=== PATIENT | male | born 1960 | race Caucasian/White ===

== ENCOUNTER 2018-09-20 13:00 | Inpatient (IN) ==
--- NOTE | 2018-09-20 13:29 | Diag Imaging Result Doc PS360 ---
EXAM: CT HEAD W/O CONTRAST HISTORY: POSS STROKE TECHNIQUE: CT head without contrast COMPARISON: 07/28/2017 FINDINGS: No parenchymal hemorrhage. No epidural or subdural hematoma. No subarachnoid hemorrhage. There is atrophy with chronic microvascular ischemic changes and old lacunar infarcts. No mass identified on this noncontrasted exam. No hydrocephalus. No sinus opacification. IMPRESSION: 1.No hemorrhage 2.Atrophy of chronic ischemic changes and old lacunar infarcts This exam was performed using automated exposure control, adjustment of mA or kV according to patient size, and/or use of iterative reconstruction technique. Electronically signed by Rogelio Whitmore 09/20/2018 1:27 PM
[2018-09-20 14:06] LABS: BASO# 0.04 X1000 (0.0-0.2); BASO% 0.5 % (0.0-0.8); EOS# 0.07 X1000 (0.0-0.7); EOS% 0.8 % (0.0-10.0); HEMATOCRIT 44.1 % (42.0-52.0); HEMOGLOBIN 15.3 g/dL (14.0-18.0); LYMPH# 1.81 X1000 (1.2-3.4); LYMPH% 21.1 % (20.5-51.1); MCH 31.7 PG (27-31); MCHC 34.7 g/dL (33-37); MCV 91.3 FL (81-99); MONO# 0.64 X1000 (0.11-0.59); MONO% 7.5 % (1.7-9.3); MPV 12.1 FL (7.4-10.4); NEUT# 6.03 X1000 (1.4-6.5); NEUT% 70.1 % (42.2-75.2); PLT 140 X1000 (130-400); RBC 4.83 XMIL (4.7-6.1); RDW 14.7 % (11.5-14.5); WBC 8.59 X1000 (4.8-10.8)
[2018-09-20 14:16] LABS: INR 1.09; PTT 32.1 Seconds (22.3-41.8)
[2018-09-20] MEDS ORDERED: NS 1,000 ML IV ONE (14:18)
--- NOTE | 2018-09-20 14:21 | Diag Imaging Result Doc PS360 ---
EXAM: CHEST-PORTABLE HISTORY: SYNCOPE TECHNIQUE: Portable chest single view COMPARISON: 08/29/2018 FINDINGS: The lungs are well expanded. The heart is not enlarged. There are sternal wires and surgical clips. The vessels are not distended. There are no infiltrates. No effusion identified. Old right rib fracture. IMPRESSION: Negative exam. Electronically signed by Rogelio Whitmore 09/20/2018 2:19 PM
[2018-09-20 14:23] LABS: ALB/GLOB RATIO 1.9; ALBUMIN 4.7 g/dL (3.5-5.0); CALCIUM 9.5 mg/dL (8.8-10.2); CREATININE 1.6 mg/dL (0.7-1.2); POTASSIUM 4.2 mmol/L (3.5-5.1); TOTAL BILIRUBIN 1.27 mg/dL (0.20-1.00); TOTAL PROTEIN 7.2 g/dL (6.3-8.3)
--- NOTE | 2018-09-20 14:54 | EKG Report ---
Test Performed on : 09/20/2018 2:12:42 PM Test Reason : STROKE LIKE SYMPTOMS Blood Pressure : / mmHG Vent. Rate : 087 BPM Atrial Rate : 087 BPM P-R Int : 152 ms QRS Dur : 090 ms QT Int : 350 ms P-R-T Axes : -08 -45 107 degrees QTc Int : 421 ms Normal sinus rhythm. Left axis deviation Septal infarct (cited on or before 26-MAY-2011) Possible Lateral infarct (cited on or before 26-MAY-2011) Abnormal ECG When compared with ECG of 29-AUG-2018 20:45, (Unconfirmed) Vent. rate has increased BY 33 BPM Non-specific change in ST segment in Inferior leads T wave inversion no longer evident in Inferior leads Nonspecific T wave abnormality, worse in Anterior leads Unconfirmed Result
--- NOTE | 2018-09-20 16:30 | PROVIDER DOCUMENTATION ---
This chart was entered by Jessica Andersen Scribe, acting as scribe for Jonna Pina MD. HPI-General Adult - General Chief Complaint: Syncope Stated Complaint: POSS STROKE Time Seen by Provider: 09/20/18 14:07 Source: patient Allergies/Adverse Reactions: Patient Allergies Allergy/AdvReac Type Severity Reaction Status Date / Time No Known Allergies Allergy Verified 08/29/18 19:05 Home Medications: Home Medication List Medication Instructions Recorded Confirmed Last Taken Type Allopurinol [Zyloprim] 1 tab PO DAILY 08/29/18 09/20/18 Unknown History Alprazolam [Alprazolam ER] 1 tab PO DAILY 08/29/18 09/20/18 Unknown History Aspirin/Calcium Carbonate/Mag 1 tab PO DAILY 08/29/18 09/20/18 Unknown History [Aspirin Buffered 325 mg Tab] Benztropine Mesylate 1 tab PO DAILY 08/29/18 09/20/18 Unknown History Colchicine 1 tab PO DAILY PRN 08/29/18 09/20/18 Unknown History Furosemide [Lasix] 1 tab PO DAILY 08/29/18 09/20/18 Unknown History Insulin Glargine,Hum.rec.anlog 25 unit SQ QHS 08/29/18 09/20/18 Unknown History [Lantus Solostar] Insulin Regular, Human [Novolin R] See Protocol 08/29/18 Unknown History Krill/Om-3/Dha/Epa/Phospho/Ast 500 mg PO DAILY 08/29/18 09/20/18 Unknown History [Krill Oil 500 mg Softgel] Melatonin 3 mg PO QHS #10 tab 08/29/18 09/20/18 Unknown Rx Melatonin 5 mg PO DAILY PRN 08/29/18 09/20/18 Unknown History Nebivolol HCl [Bystolic] 1 tab PO DAILY 08/29/18 09/20/18 Unknown History Ramipril 1 tab PO BID 08/29/18 09/20/18 Unknown History Rosuvastatin Calcium [Crestor] 40 mg PO DAILY 08/29/18 09/20/18 Unknown History Vortioxetine Hydrobromide 1 tab PO DAILY 08/29/18 09/20/18 Unknown History [Trintellix] - History of Present Illness -Gen Adult Nature of Presenting Problems: Patient is a 58 year old male who presents to the ED via EMS after having a fall. Patient states he was dizzy and lost his balance causing him to fall. Denies LOC. Report history of CVA. Patient denies pain. Location of Pain/Injury: reports: none Pain Radiation: reports: no radiation Quality of Pain: reports: none Severity: reports: mild Onset/Duration: reports: just prior to arrival Timing: reports: gone now Associated Symptoms: reports: dizziness Similar Symptoms Previously?: No Recently seen or treated by another doctor?: No Review of Systems - Adult - REVIEW OF SYSTEMS - ADULT Constitutional: reports: no symptoms reported. denies: chills, fever, fatique Eyes: reports: no symptoms reported Ears, Nose, Mouth & Throat: reports: no symptoms reported Cardiovascular: reports: no symptoms reported. denies: chest pain, irregular heart rate, palpitations Respiratory: reports: no symptoms reported. denies: cough, shortness of breath, wheezing Gastrointestinal: reports: no symptoms reported Genitourinary: reports: no symptoms reported Musculoskeletal: reports: no symptoms reported Integumentary: reports: no symptoms reported Neurological: reports: no symptoms reported. denies: dizziness/vertigo, headache/migraines, syncope Psychiatric: reports: no symptoms reported Endocrine: reports: no symptoms reported Hematologic/Lymphatic: reports: no symptoms reported Allergic/Immunologic: reports: no symptoms reported All Other Systems: Reviewed and Negative Past History - Adult - PAST MEDICAL HISTORY-ADULT Review of Records: reports: Old Records Reviewed, Nursing Assessment Review, Medications Reviewed, Social history reviewed & non-contributory. Major Childhood Illnesses: reports: denies history Cardiovascular: reports: HTN, hyperlipidemia Respiratory: reports: denies history Gastrointestinal: reports: GERD Obstetrical/Gynecological: reports: denies history Genitourinary: reports: kidney disease Musculoskeletal: reports: denies history Neurological: reports: CVA, TIA Endocrine/Immune: reports: Diabetes Other Conditions: reports: denies history - PRIOR SURGERIES/PROCEDURES Surgical/Procedure History: reports: reviewed, not pertinent, CABG, cholecystectomy - IMMUNIZATION STATUS Childhood Immunizations: See Nurse Assessment Flu Vaccine: See Nurse Assessment - FAMILY HISTORY Family History: reviewed, not pertinent - SOCIAL HISTORY Smoking: cigarettes (former) Substance Use: denies Living Situation: family Physical Exam-General - PHYSICAL EXAM-ADULT Initial Vital Signs Reviewed: Yes - CONSTITUTIONAL General Appearance: alert, no apparent distress. negative: lethargic, slow to respond - HEAD, EARS, NOSE, MOUTH & THROAT HENMT: normocephalic/atraumatic, other (dry mucous membranes). negative: angioedema, hearing deficit - RESPIRATORY Respiratory: chest non-tender, lungs clear, normal breath sounds. negative: crackles, rales, wheezing - CARDIOVASCULAR Cardiovascular: normal peripheral pulses, regular rate, rhythm. negative: tachycardia, systolic murmur - GASTROINTESTINAL (ABDOMEN) Abdominal Exam: normal bowel sounds, non tender, soft. negative: guarding, rebound - SKIN Integumentary: normal color, normal turgor, warm/dry. negative: cyanosis, ecchymosis, erythema, jaundice - NEUROLOGIC Neurologic: facial droop (right side from prior CVA). negative: aphasia, sensory deficit - PSYCHIATRIC Psych/Mental Status: normal mood/affect, oriented x 3. negative: anxious Progress - PLAN OF CARE/RESULTS Progress/Plan/Lab Results: Vital Signs - 8 hr 09/20/18 13:38 09/20/18 13:44 Temperature 98.0 F Pulse Rate 83 85 Respiratory Rate 18 Blood Pressure 188/100 188/100 O2 Sat by Pulse Oximetry 100 99 Laboratory Results - last 24 hr 09/20/18 09/20/18 09/20/18 13:45 13:45 13:45 WBC 8.59 RBC 4.83 Hgb 15.3 Hct 44.1 MCV 91.3 MCH 31.7 H MCHC 34.7 RDW Std Deviation 14.7 H Plt Count 140 MPV 12.1 H Neut % (Auto) 70.1 Lymph % (Auto) 21.1 Starr % (Auto) 7.5 Eos % (Auto) 0.8 Baso % (Auto) 0.5 Neut # (Auto) 6.03 Lymph # (Auto) 1.81 Starr # (Auto) 0.64 H Eos # (Auto) 0.07 Baso # (Auto) 0.04 PT 15.0 INR 1.09 PTT (Actin FS) 32.1 Sodium 138 Potassium 4.2 Chloride 95 L Carbon Dioxide 24 L Anion Gap 19 BUN 30 H Creatinine 1.6 H Estimated GFR/1.73 m2 44 BUN/Creatinine Ratio 19 Glucose 103 POC Glucose Calculated Osmolality 282 Calcium 9.5 Total Bilirubin 1.27 H AST 22 ALT 28 Alkaline Phosphatase 80 Creatine Kinase 151 Troponin T Total Protein 7.2 Albumin 4.7 Globulin 2.5 Albumin/Globulin Ratio 1.9 09/20/18 09/20/18 13:45 14:17 WBC RBC Hgb Hct MCV MCH MCHC RDW Std Deviation Plt Count MPV Neut % (Auto) Lymph % (Auto) Starr % (Auto) Eos % (Auto) Baso % (Auto) Neut # (Auto) Lymph # (Auto) Starr # (Auto) Eos # (Auto) Baso # (Auto) PT INR PTT (Actin FS) Sodium Potassium Chloride Carbon Dioxide Anion Gap BUN Creatinine Estimated GFR/1.73 m2 BUN/Creatinine Ratio Glucose POC Glucose 104 Calculated Osmolality Calcium Total Bilirubin AST ALT Alkaline Phosphatase Creatine Kinase Troponin T 0.035 Total Protein Albumin Globulin Albumin/Globulin Ratio Orders Category Date Time Status Cardiac Monitoring DIRECTED Care 09/20/18 13:46 Active Oxygen Therapy- ED Nursing DIRECTED Care 09/20/18 13:46 Active Saline Loc NOW Care 09/20/18 13:46 Active CHEST-PORTABLE [RAD] Stat Exams 09/20/18 13:[address] HEAD W/O CONTRAST [CT] Stat Exams 09/20/18 13:16 Completed CBC WITH ELECTRONIC DIFF [HEME] Stat Lab 09/20/18 13:45 Completed CK PROFILE [SP CHEM] Stat Lab 09/20/18 13:45 Completed COMPREHENSIVE METABOLIC PANEL [CHEM] Stat Lab 09/20/18 13:45 Completed PRO B-NATRIURETIC PEPTIDE Stat Lab 09/20/18 13:45 Received PROTIME WITH INR [COAG] Stat Lab 09/20/18 13:45 Completed PTT [COAG] Stat Lab 09/20/18 13:45 Completed TROPONIN T Stat Lab 09/20/18 13:45 Completed 0.9% Sodium Chloride Inj [Ns] 1,000 ml Med 09/20/18 14:18 Active IV 999 mls/hr CP/SOB/Palp >45 yrs of Age Stat Oth 09/20/18 13:45 Ordered EKG [EKG] Stat Ther 09/20/18 13:46 Ordered Result Diagrams: 09/20/18 13:45 09/20/18 13:45 - EKG 1 Time of EKG reading by physician:: 14:12 EKG Read and Signed by:: Jonna Pina EKG Interpretation (*Must complete 3 of following elements*): Abnormal (possible lateral infarct, age undetermined) Rate: 87 Rhythm: normal sinus rhythm [place]: left DE Interval: normal Comments: septal infarct, age undetermined; - XRAY 1 XRAY Study: Chest Impression: See EMR Report ( EXAM: CHEST-PORTABLE HISTORY: SYNCOPE MOISES HNIQUE: Portable chest single view COMPARISON: 08/29/2018 FINDINGS: The lungs are well expanded. The heart is not enlarged. There are sternal wires and surgical clips. The vessels are not distended. There are no infiltrates. No effusion identified. Old right rib fracture. IMPRESSION: Negative exam. Electronically signed by Rogelio Whitmore 09/20/2018 2:19 PM 09/20/18 1419 Interpreting Physician: Rogelio Whitmore MD Dictated Date/Time: 09/20/18 1418 cc: Jonna Pina MD; Tanner Greco MD) - CT/MRI 1 CT Study: Head Impression: See EMR Report (EXAM: CT HEAD W/O CONTRAST HISTORY: POSS STROKE TECHNIQUE: CT head without contrast COMPARISON: 07/28/2017 FINDINGS: No parenchymal hemorrhage. No epidural or subdural hematoma. No subarachnoid hemorrhage. There is atrophy with chronic microvascular ischemic changes and old lacunar infarcts. No mass identified on this noncontrasted exam. No hydrocephalus. No sinus opacification. IMPRESSION: 1.No hemorrhage 2.Atrophy of chronic ischemic changes and old lacunar infarcts This exam was performed using automated exposure control, adjustment of mA or kV according to patient size, and/or use of iterative reconstruction technique. Electronically signed by Rogelio Whitmore 09/20/2018 1:27 PM 09/20/18 1327 Interpreting Physician: Rogelio Whitmore MD Dictated Date/Time: 09/20/18 1326 cc: Jonna Pina MD; Tanner Greco MD) - CONSULTS/PCP/HOSPITALIST Notification #1 *Consult/PCP/Hospitalist*: Dr. Greco Time Discussed: 16:57 Reason/Comments: Dr. Pina consulted with Dr. Greco about patient. Departure - Departure Date of Disposition Decision: 09/20/18 Time of Disposition Decision: 17:02 DIAGNOSIS: Gait difficulty, Dizziness on standing Disposition: ADMITTED INPATIENT 09 Certified Medical Emergency: Emergent Condition: Fair Referrals and Follow-Ups: Tanner Greco MD [Primary Care Provider] - - Critical Care Note This patient required my direct & personal management of CC.: No Attestation - Physician/ JOSEE Attestation Patient care was provided by Advanced Practice Provider:: No The physician spent face to face time with patient:: Yes Advanced Practice Provider documentation review:: Supervising physician onsite and consulted in the evaluation and care of this patient. The physician did have a face to face encounter with the patient. This chart was documented by the indicated scribe, (Jessica Andersen Scribe) and accurately reflects the services I performed and decisions made by me, Jonna Pina MD, as attested by the provider's signature.
[2018-09-20] MEDS ORDERED: TYLENOL PO PRN (20:02)
[2018-09-20] MEDS ORDERED: NS 1,000 ML IV SCH (20:15)
[2018-09-20] MEDS ORDERED: ALTACE PO SCH (21:00)
[2018-09-20] MEDS: HUMALOG SUBQ SCH (21:05)
[2018-09-20] MEDS: LOVENOX SUBQ SCH (22:11)
[2018-09-20] MEDS: COGENTIN PO SCH (22:11)
[2018-09-20] MEDS: LANTUS INSULIN SUBQ SCH (22:11)
[2018-09-20] MEDS: XANAX PO SCH (22:11)
--- NOTE | 2018-09-20 22:46 | HISTORY AND PHYSICAL ---
PRIMARY CARE PHYSICIAN: Dr. Tanner Greco. CHIEF COMPLAINT: Profound dizziness, syncopal episode, alteration of mental status. HISTORY OF PRESENT ILLNESS: A 58-year-old, white male with a complicated past medical history who presents for evaluation of above-mentioned symptoms. The patient's history is somewhat difficult to obtain secondary to his inability to give an accurate chronological history. Additionally, the patient had a syncopal episode as described below which limits his ability to elaborate on details. From our discussion and from discussion with the on-call physician last night, the patient's contacted on-call secondary to patient's inability to "breathe." My partner was alarmed by this finding. He elicited more information and it was suggested that he was not actually moving adequate air. The patient was instructed to go to the emergency department immediately. Patient's conveyed this message. Interestingly, the patient states that he convinced himself he could breathe and began breathing better. He did not go to the emergency department. The patient states he slept well overnight. Upon rising this morning, he complained of considerable dizziness. At this point, patient's history is very limited. He states he fell to the floor, although he suggest this was not at his home. Apparently, patient then drug himself from the house out into the driveway. He states that this occurred secondary to an inability to use the phone. He states he attempted, but was unable to comprehend how to use the numbers. Upon dragging himself out into the driveway, the patient called for help and a neighbor called for EMS. The patient's report, however, stated he was not in the driveway, but at the parking lot of his 's employment. She denies this was the case. Upon arrival, EMS evaluated patient and took him to the emergency department for further evaluation and management. In the emergency department, a full evaluation was pursued. Laboratory data returned without overt abnormalities. Creatinine was slightly elevated at 1.6, which is approximately his baseline. CT scan of the head revealed no evidence of acute changes. Because of the presumed syncopal episode, profound weakness, and mental status change, the patient will be admitted to the hospital for full evaluation and management. Of note, patient denies chest pains, palpitations, nausea, vomiting, change in neurological status, fevers, chills, change in urination, or change in bowel movements. Per report, the patient has been seeing a psychiatrist secondary to his underlying depression, anxiety, and OCD. He has had several medication changes recently. The patient states he is not taking medications currently, but is unable to tell me when he stopped. Additionally, patient has become more withdrawn per family. He spends a vast majority of his day in the bed. He does not interact routinely. PAST MEDICAL HISTORY: 1. History of an abnormal electrocardiogram with first-degree AV block, inferior infarct changes consistent with an inferior infarct, and nonspecific T-wave abnormalities. 2. History of urinary retention, resolved. 3. Anxiety. 4. Abnormal skin examination with multiple brown nevi. 5. Bilateral carotid artery disease status post right carotid endarterectomy in 2008. 6. Cholelithiasis status post laparoscopic cholecystectomy in 2005. 7. Chronic kidney disease. 8. Dementia, likely multifactorial. 9. Type 2, insulin-dependent diabetes. 10. Chronic lower extremity edema. 11. Reflux disease. 12. Hypertension. 13. Gout. 14. History of hematuria. 15. Hyperlipidemia. 16. Iron deficiency anemia. 17. History of ischemic heart disease status post coronary artery bypass grafting in 2005. 18. Longstanding history of leukocytosis. 19. Low HDL. 20. Depression. 21. History of mild mitral valve disease. 22. History of bilateral ulnar neuropathy. 23. Obsessive-compulsive disorder. 24. History of multiple postoperative stroke status post coronary artery bypass grafting in August 2005 and recurrent stroke in October 2008. Patient has residual right facial droop, slurred speech, gait abnormality, and eye sight abnormality. Plavix assay in the past was negative. 25. Intermittent headaches. 26. Vitamin B12 deficiency. CURRENT MEDICATIONS: 1. Allopurinol 300 mg daily. 2. Alprazolam ER 1 mg at bedtime. 3. Aspirin 325 mg daily. 4. Bystolic 10 mg daily. 5. Colcrys 0.6 mg daily. 6. Crestor 40 mg at bedtime. 7. Vitamin B12 1000 mcg IM monthly. 8. Fluoxetine 40 mg daily (the patient is not currently taking). 9. Lasix 40 mg daily except Sundays and Wednesdays. 10. Lantus 20 units at bedtime. 11. Novolin R 5 units plus sliding scale with meals. 12. Ocuvite 1 tablet daily. 13. [place]-3 Krill oil 1000 mg daily. 14. Ramipril 10 mg twice daily. 15. Benztropine 0.5 mg at bedtime. ALLERGIES: The patient states he is allergic to amlodipine which causes tinnitus, hydrochlorothiazide which causes hyponatremia, NovoLog which causes muscle spasms, and prednisone which causes a rash. SOCIAL HISTORY: Patient denies tobacco, alcohol or illicit drug use. He is disabled. FAMILY HISTORY: Patient's father passed at age 64 secondary to complications of an acute myocardial infarction. He had a history of diabetes, hypertension, and hyperlipidemia. Patient's mother is living at age 77 with a history of hypertension and hyperlipidemia. REVIEW OF SYSTEMS: A 12-point review of systems was performed. Pertinent positives and negatives are noted in history present illness. PHYSICAL EXAMINATION: VITAL SIGNS: Temperature 98.9 degrees, heart rate 80, respirations 19, blood pressure is 115/93. GENERAL: Chronic ill-appearing, no acute distress. HEENT: Normocephalic, atraumatic. Pupils equal, round, reactive to light. Extraocular muscles an intact. Sclerae anicteric. [place] conjunctivae. Oral nasopharynx clear without exudate. NECK: Supple. No lymphadenopathy. No thyromegaly. No bruits auscultated. CARDIOVASCULAR: Regular rate and rhythm. No significant murmurs, rubs, or gallops. PULMONARY: Clear to auscultation bilaterally. ABDOMEN: Soft, nontender, nondistended. Positive bowel sounds. EXTREMITIES: No significant clubbing, cyanosis, or edema. NEUROLOGIC: The patient has a right facial droop, and left sided weakness. Gait is unstable. PSYCHOLOGIC EXAMINATION: Patient is intermittently confused during the interview. LABORATORY DATA: Sodium 138, potassium 4.2, chloride 95, bicarb 24, BUN 30, creatinine 1.6, glucose 103, calcium 9.5, total bilirubin 1.27, total protein 7.2, albumin 4.7, alkaline phosphatase 80. AST 22, ALT 20. A CK total 151. Troponin 0.035. PT 15.0. INR is 1.09. PTT is 32.1. White blood cell count 8.59, hemoglobin 15.3, hematocrit 44.1, platelet count 140,000. CT scan of the head revealed no hemorrhage. Atrophy of chronic ischemic changes and old lacunar infarct. A chest x-ray was performed which revealed negative examination. ASSESSMENT AND PLAN: A 58-year-old white male with a very complicated past medical history who presents for evaluation of a presumed syncopal episode. As above, patient's history is quite limiting. Additionally, patient does have intermittent confusion and mental status changes. Recently, he has had profound dizziness. Per patient's family, he has been acting different over the course of the last 48 to 72 hours. The patient will be admitted to the hospital for full evaluation and management of each of these conditions. 1. Admit to General Medicine. 2. Syncopal episode - Differential diagnosis is quite broad. In the setting of previous strokes and known cerebral vascular disease, stroke will need to be considered. Additionally, patient is at high risk for cardiac disease including a arrhythmia, orthostatic hypotension, adverse reaction secondary to medication noncompliance, vasovagal event, and seizure disorder. The patient will be placed on telemetry. Echocardiogram and carotid Dopplers will be scheduled. We will resume patient's medications as he has been prescribed. We will monitor blood pressure closely. We will consult neurology and consider whether an MRI evaluation is appropriate. For now, we will continue his optimized medical management. 3. Alteration of mental status - As above, the differential diagnosis is quite broad. We will evaluate syncopal episode as described above. We will consult neurology as noted. 4. Dizziness - Once again, this differential diagnosis is quite broad. As patient's blood pressure is marginally low, we will hold ramipril for now. We will continue Bystolic. We will remain aware that an acute stroke or inner ear pathology could be playing a role. We will also resume his home medications, as inconsistent dosing of his psychological medications could also be playing a role in the dizziness. 5. Coronary artery disease - The patient has longstanding disease. While his symptoms are not classic for underlying ischemic heart disease, this certainly could be playing a role. Initial cardiac enzymes were negative. We will follow telemetry. 6. Carotid artery disease - The patient is status post right-sided carotid endarterectomy in 2008. He has not required left-sided intervention today. We will check carotid Dopplers as this also could be contributing. 7. Diabetes - We will resume Lantus at night. We will cover patient with sliding scale insulin. 8. Depression/anxiety - The question is raised as to how much this is contributing to his current condition. The patient's medications have been changed. It appears he is not taking his current medications as prescribed. We will resume Prozac therapy. We will continue benztropine. We will follow this. 9. Hypertension - As above, we will hold patient's ramipril therapy. We will follow serial blood pressure evaluations. 10. Hyperlipidemia - We will continue patient on Crestor therapy. 11. Profound weakness with unsteady gait and multiple falls - This is of significant concern. The question is raised whether patient is safe to be living at home with his who also require some assistance. We discussed this in detail with the patient and with his family. At this point, we will start physical therapy. We will determine if rehabilitation is appropriate. If patient is unable to achieve improvement, assisted living may need to be considered. 12. Fluid electrolytes nutrition. We will monitor electrolytes. Normal saline at KVO. Cardiac prudent/diabetic diet. 13. Prophylaxis. Patient will be placed on subcu Lovenox. cc: Tanner Greco MD
[2018-09-20] MEDS: COLCRYS PO SCH (23:56)
[2018-09-21] MEDS: HUMALOG SUBQ SCH ×4 (06:01→21:21)
[2018-09-21 07:58] LABS: FREE T4 1.29 ng/dL (0.93-1.70); TSH 1.87 uIUmL (0.27-4.20)
[2018-09-21] MEDS ORDERED: MAGNESIUM SULFATE 2 GM/S.W.I. 2 GM/50 ML IVPB IV ONE (08:55)
[2018-09-21] MEDS: COLCRYS PO SCH (09:45)
[2018-09-21] MEDS: CRESTOR PO SCH (09:45)
[2018-09-21] MEDS: ASPIRIN EC PO SCH (09:46)
[2018-09-21] MEDS: OCUVITE LUTEIN & ZEAXANTHIN PO SCH (09:46)
[2018-09-21] MEDS: FISH OIL CONCENTRATE PO SCH (09:46)
[2018-09-21] MEDS: ZYLOPRIM PO SCH (09:46)
[2018-09-21] MEDS: PROZAC PO SCH (09:46)
[2018-09-21] MEDS: BYSTOLIC PO SCH (09:46)
--- NOTE | 2018-09-21 14:05 | ECHO REPORT ---
ORDER DATE: 09/20/2018 INDICATION: Coronary artery disease, syncope, altered mental status, hypertension. FINDINGS: 1. The right atrium appears normal in size at 3.8 cm. 2. Mild tricuspid regurgitation. RV systolic pressure 26. 3. Normal RV size and systolic function. 4. Trace pulmonic insufficiency. 5. Moderate to severe left atrial enlargement with a volume index of 35 and a dimension of 4.5 cm. 6. No mitral valve prolapse. Mild mitral regurgitation. No mitral stenosis. 7. Normal LV size, end-diastolic dimension of 4.6 cm. Normal wall thicknesses with a posterior and interventricular septal wall thickness of 1 cm each. Normal LV systolic function. Calculated ejection fraction of 66%. 8. Aortic valve opens well. Mild insufficiency. No stenosis. 9. Aorta appears normal in visualized segments. 10. No pericardial effusion seen. cc: MD Tanner Gonzalez MD
[2018-09-21] MEDS ORDERED: XYLOCAINE 2% JELLY UROJECT TOP ONE (14:45)
[2018-09-21 15:22] LABS: URINE SOURCE CATH
[2018-09-21 15:34] LABS: BILIRUBIN URINE NEGATIVE (NEGATIVE); BLOOD URINE SMALL (NEGATIVE); COLOR YELLOW; GLUCOSE URINE NEGATIVE (NEGATIVE); KETONE URINE NEGATIVE (NEGATIVE); LEUKOCYTES URINE NEGATIVE (NEGATIVE); NITRITE URINE NEGATIVE (NEGATIVE); PH URINE 5.5; PROTEIN URINE 100 mg/dL (NEGATIVE); SP GRAVITY URINE 1.013; TURBIDITY URINE CLEAR (CLEAR); UROBILINOGEN URINE NORMAL (NORMAL)
[2018-09-21 15:35] LABS: UR EPITHELIAL CELLS <10 /HPF (<10); URINE BACTERIA NEGATIVE /HPF; URINE RBC <10 /HPF (<10); URINE WBC <10 /HPF (<10)
--- NOTE | 2018-09-21 16:27 | Diag Imaging Result Doc PS360 ---
EXAM: MRI BRAIN W/WO CONTRAST HISTORY: ataxia, falling TECHNIQUE: MRI brain with and without intravenous contrast. Axial, sagittal, and coronal images obtained in multiple sequences. These are followed by post contrasted axial and coronal images. COMPARISON: CT head from 09/20/2018 and MRI from 10/02/2012 FINDINGS: There are prominent chronic microvascular ischemic changes with old lacunar infarcts. Single tiny area of increased signal on the diffusion weighted images measuring 4 mm in the right frontoparietal lobe. This is on one image only. No other diffusion abnormality. There is atrophy. No mass or midline shift. No enhancing lesion on the post contrasted images. No hydrocephalus. No epidural or subdural fluid collection. Partial opacification of the right maxillary sinus. Normal orbits. The appearance of the posterior corpus callosum is unchanged from the prior MRI. IMPRESSION: 1.Atrophy with chronic microvascular ischemic changes and multiple small old infarcts 2.Possible recent right frontal lacunar infarct 3.Right maxillary sinusitis Electronically signed by Rogelio Whitmore 09/21/2018 4:24 PM
--- NOTE | 2018-09-21 19:32 | CONSULTATION ---
DATE OF CONSULTATION: 09/21/2018 Mr. Leon is 58 years old with previous stroke history, recent fall, question of new neurologic problem. History provided to me by the patient may not be completely valid but he reports having clumsiness in all limbs, slurred speech, facial asymmetry, dizziness and numbness in the left limbs present since stroke which he reports occurred during CABG in 2005. He reports several strokes, but I think he may be reporting 1 actual event. He reports stable course with some improvement after that. He has had unsteady gait with occasional fall. He fell yesterday and was not able to get himself up. He dragged himself outside, got attention from a neighbor and was assisted. He reports having trouble using his cellphone. He reports he "thought I was going to " and was worried and upset and "too nervous to make the call." I believe he had some trouble hitting the phone buttons correctly. He reports no new focal neurologic deficit. He believes his unsteady gait is at baseline now. There was no new vision disturbance. He is not now and has not previously been bothered by headache. I saw Mr. Leon in 1997 and in 1999 for neuromuscular problems which may have been diabetic neuropathy. I saw him in the hospital in 2005 and in [address] Campbell saw him in the hospital in 2008 and I believe these hospitalizations might have had something to do with his stroke history. Workup here includes noncontrast CT which shows old changes, right more than left basal ganglia area lacunes, left more than right brainstem/peduncle area lacunes. There is some lucency in the right medial occipital area which is difficult for me to distinguish from widened sulcus. Previous brain MRI 10/02/2012 without contrast showed these changes. 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 He had carotid endarterectomy in 2008. Carotid ultrasound since then has been unremarkable, last done 12/22/2017. Lab this admission shows mildly elevated blood sugars, magnesium 1.4, B12 and thyroid okay. He has been afebrile this admission. Heart rate has ranged 40s to 90s. Systolic blood pressure was 180s on presentation, 100 to 120s since he settled in. Home medicine list is uncertain. I have reviewed the recorded home preadmission medication list on current hospital chart. This includes alprazolam 1 mg daily, benztropine 1 mg daily, no other definite PHYSICAL INSTRUCTOR active drugs. He told me that supervises medicines. He told me that he had some recent psychiatry medication changes and 1 of them might have been "Prozac or something like Prozac" and this was associated with "silly dreams" and so he stopped it. He thinks another recent psychiatry medication change might be responsible for his last fall. Again, I am not certain his history is completely valid. On exam, Mr. Leon is awake, alert, attentive. He answered questions appropriately. Speech is slightly dysarthric with cerebellar features but easily understandable. Language function is intact on bedside testing. Remote memory is good. Recent memory is fair. He is completely oriented to all parameters. He was able to discuss some recent news accurately. Head and neck are unremarkable. There is no meningismus. He has full visual duran. He has good lateral eye movement with a little bit of nystagmus to the right more than the left but nothing really remarkable. Upgaze is slightly diminished. There is right lower facial droop. Facial sensation is intact. Gag is intact. Tongue is midline. He can hear. Shoulder shrug is good bilaterally. Strength is good in the limbs. He has difficulty with [id number] testing bilaterally. He was not fluid with rapid alternating movements in each hand. Limb tone is symmetric. He reports diminished pinprick appreciation over the left limbs compared to the right. IMPRESSION: 1. Reported cerebral infarction occurring perioperatively in 2005 with his report that chief deficit was incoordination and unsteady gait. He believes he has had numbness in the left limbs chronically and stable deficit since then. 2. History of falling. He believes that falling has not increased in frequency in recent months. He attributes the falling to his chronic unsteady gait since the stroke in 2005. 3. Recent apparent difficulty using telephone. He explains this as being due to his anxiety. He might have had transient dysphasia, but I am not certain about that. In light of his complicated past and current neurologic situation, I think it would be reasonable to go ahead with brain MRI. His creatinine is 1.6 this admission, 1.3 at baseline. I think if we hydrate him vigorously, we can get MRI with contrast. Further plans will depend on that report. Thanks for asking Neurology to see Mr. Leon. cc: MD Tanner Branham III, MD MTDD
--- NOTE | 2018-09-21 19:46 | PROGRESS NOTE ---
DATE: 09/21/2018 SUBJECTIVE: I was consulted Mr. Leon secondary to nursing staff unable to place Alegre catheter. I was in operating room and was contacted by the patient's family stating that the patient was uncomfortable, felt like he had to urinate, unable to do so. I have instructed the nursing staff to use 18-[place] coude Alegre catheter which was reportedly placed without difficulty with straw-colored urine return. I then checked on the patient after I was finished with surgery with his family present at bedside. His catheter is draining well. I was asked by his stepfather about BPH. The patient is known to Dr. Vargas. He has not been on BPH medications. I have explained to the family that it would be very reasonable to start him on Flomax 0.4 mg at bedtime. I did not want to put the order in unless Dr. Greco is in agreement since the patient was admitted with dizziness and syncopal episode. If he were to taken at bedtime schedule, dizziness should not be much of an issue, but again I will wait and not start him on Flomax unless Dr. Greco decides so. PLAN: 1. Okay to start Flomax 0.4 at bedtime from my standpoint. 2. Okay to remove Alegre when Dr. Greco deems necessary. 3. Please call with questions. cc: MD Tanner Gracia MD
[2018-09-21] MEDS: COGENTIN PO SCH (21:17)
[2018-09-21] MEDS: XANAX PO SCH (21:17)
[2018-09-21] MEDS: LOVENOX SUBQ SCH (21:20)
[2018-09-21] MEDS: LANTUS INSULIN SUBQ SCH (21:20)
--- NOTE | 2018-09-21 21:25 | PROGRESS NOTE ---
DATE: 09/21/2018 SUBJECTIVE: The patient was admitted yesterday with profound dizziness, probable syncopal episode, and alteration of mental status. Laboratory data at that point demonstrated no definitive etiology. The patient was placed as an inpatient. He was started on IV fluids. This morning, upon my arrival, patient stated his condition was largely unchanged. Per nursing report, he did have some confusion overnight. Multiple tests were scheduled including a carotid Doppler, echocardiogram, and consultation by Dr. Granados. By late morning, patient had developed abdominal discomfort. Bladder scanner suggested a large amount of urine in his bladder. A Alegre catheter was attempted to be placed, although unsuccessfully. Urology was then consulted. Throughout the day, patient has done reasonably well. Dr. Granados completed his consultation and suggested an MRI. MRI revealed atrophy with chronic microvascular ischemic changes and multiple small old infarctions. Possible recent right frontal lacunar infarct was noted. Right maxillary sinusitis was noted. This evening, patient states he feels better than this morning. His energy level is good. His p.o. intake is adequate. He denies fevers, chills, nausea, vomiting, shortness of breath, or chest discomfort. OBJECTIVE: T-max 98.4 degrees, heart rate 48 to 97, respirations 17 to 19, blood pressure 103 to 188 over 57 to 100.General: Chronically ill appearing, no acute distress. Cardiovascular: Regular rate and rhythm. No significant murmurs, rubs, or gallops. Pulmonary: Clear to auscultation bilaterally. Abdomen: Soft, nontender, nondistended. Positive bowel sounds. Extremities: Moves all extremities well. Patient has chronic left-sided weakness, unchanged. Dermatologic: Evaluation reveals no evidence of rash. LABORATORY DATA: Sedimentation rate 3. Magnesium 1.4. Vitamin B12 629, TSH 1.87, free T4 1.29. RADIOLOGIC DATA: Echocardiogram suggested moderate to severe right atrial enlargement, mild mitral regurgitation, normal left ventricular ejection fraction of 66%, mild aortic insufficiency. MRI of the brain revealed atrophy with chronic microvascular ischemic changes and multiple small old infarcts. Possible recent right frontal lacunar infarct. Right maxillary sinusitis. ASSESSMENT AND PLAN: 1. Syncopal episode-the etiology of this remains queried. Certainly, this could be secondary to his possible acute stroke, however this seems less likely. Echocardiogram reveals no definitive architectural cardiac abnormality. Carotid Doppler, however, is pending. At this point, this likely was multifactorial. We will continue to address his blood pressure as described below. We will follow this closely. 2. Possible recent right frontal lacunar infarct-the question is raised as to the significance of this finding. With some personality changes, this may indeed be playing a significant role. We will continue to optimize medical management per Dr. Granados's recommendations. 3. Alteration of mental status-as above, this may be secondary to his acute stroke. Mental status this evening is approaching baseline. 4. Dizziness-once again, the question as to the etiology is queried. This certainly could have been orthostatic. His lisinopril has been held. Blood pressure has been acceptable. His dizziness has essentially resolved. 5. Coronary artery disease-patient has longstanding disease. We will continue optimize his medical and nonmedical management. 6. Carotid artery disease-the patient is status post right-sided carotid endarterectomy in 2008. He has not required left-sided intervention to date. We will follow up on carotid Doppler evaluation. 7. Diabetes-the patient's blood sugars are reasonably controlled with sliding scale insulin. 8. Depression/anxiety-unfortunately, this likely is contributing to his symptoms. Prozac was resumed yesterday. Benztropine was continued. Today, patient states he feels well. 9. Hypertension-we will continue to hold patient's ramipril therapy. Blood pressure is reasonably controlled. 10. Hyperlipidemia-we will continue patient on Crestor therapy. 11. Profound weakness with unsteady gait and multiple falls-this likely is multifactorial, but certainly contributed to by his acute/recent infarct. We will continue physical therapy. We will plan discharge rehabilitation once appropriate. 12. Disposition-at this point, patient continues to require care home care in a hospital setting. We will plan discharge home once appropriate. cc: Tanner Greco MD
[2018-09-22] MEDS: HUMALOG SUBQ SCH ×4 (06:25→23:13)
[2018-09-22] MEDS: CRESTOR PO SCH (09:10)
[2018-09-22] MEDS: FISH OIL CONCENTRATE PO SCH (09:10)
[2018-09-22] MEDS: PROZAC PO SCH (09:10)
[2018-09-22] MEDS: BYSTOLIC PO SCH (09:11)
[2018-09-22] MEDS: ZYLOPRIM PO SCH (09:11)
[2018-09-22] MEDS: OCUVITE LUTEIN & ZEAXANTHIN PO SCH (09:11)
[2018-09-22] MEDS: COLCRYS PO SCH (09:11)
[2018-09-22] MEDS: ASPIRIN EC PO SCH (09:11)
--- NOTE | 2018-09-22 14:13 | PROGRESS NOTE ---
DATE: 09/22/2018 SUBJECTIVE: Patient was admitted with syncopal episode and alteration of mental status. Full evaluation, thus far, has revealed only a right frontal lacunar infarct, possibly playing a role in his personality changes. Overnight, patient states he did reasonably well. This morning, he continues to have intermittent alteration of mental status. Patient was anticipating going to my office to see me this morning rather than realizing he is in the hospital. He complains of difficulty with eating secondary to inability to effectively open his mouth. With his complaining, interestingly, this has been present since 2005. Otherwise, he also continues to have weakness. He denies fevers, chills, nausea, vomiting, shortness of breath, or chest discomfort. OBJECTIVE: Vital signs: T-max 99.1 degrees, heart rate 51 to 86, respirations 17 to 18, blood pressure 116 to 138/65 to 72. General: Chronically ill appearing, no acute distress. Cardiovascular: Regular rate and rhythm. No significant murmurs, rubs, or gallops. Pulmonary: Clear to auscultation bilaterally. Abdomen: Soft, nontender, nondistended. Positive bowel sounds. Extremities: Moves all extremities well. No significant clubbing, cyanosis, or edema. Dermatologic evaluation: Evaluation reveals no evidence of rash. LABORATORY DATA: None. ASSESSMENT AND PLAN: 1. Syncopal episode--The etiology of this remains queried. The patient was diagnosed with a right frontal lacunar infarct. At this point, I cannot contribute this to his syncopal episode. I am concerned this may have been either orthostatic or vasovagal in etiology. Patient's blood pressure medications have been adjusted as described below. The patient has had no evidence of arrhythmia overnight per telemetry. We will follow this for now. 2. Possible recent right frontal lacunar infarct--This may indeed have affected his personality as his family has noted policy change clerk the course of the last week. Memory also could be affected. At this point, he is optimized medically. With his history of noncompliance with medication, I feel compliance is the first step toward future prevention. We will defer further management to Dr. Granados. 3. Alteration of mental status--As above, patient's confusion is intermittent, and we will continue supportive care. 4. Dizziness--I suspect this may have been orthostatic in etiology. We will continue to address blood pressure as described below. At present time, he denies significant symptoms. 5. Urinary retention--A Alegre catheter has been placed by Dr. Burgess. I appreciate his assistance. 6. Coronary artery disease--Patient has longstanding, advanced disease. We will continue to optimize the patient's medical and nonmedical management. 7. Carotid artery disease--Patient is status post right-sided carotid endarterectomy in 2008. He has not required left-sided intervention to date. Carotid Doppler results are pending. 8. Diabetes--Patient's blood sugars are reasonably controlled with sliding scale insulin. 9. Depression/anxiety--Unfortunately, this is significant. The patient had recently discontinued his medications. Prozac was resumed upon admission. Benztropine has been continued. We will continue to encourage activity as tolerated. 10. Hypertension--The patient's ramipril has been held. Blood pressure remains controlled. As above, hypotension may have been playing a role in his dizziness and syncopal episode. 11. Hyperlipidemia--We will continue Crestor therapy. 12. Profound weakness with unsteady gait and multiple falls--This is likely multifactorial. We will continue physical therapy. Patient likely will require rehabilitation at discharge. 13. Disposition--At this point, patient continues to require group home care in a hospital setting. We will plan discharge home once appropriate. cc: Tanner Greco MD
[2018-09-22] MEDS: COGENTIN PO SCH (23:12)
[2018-09-22] MEDS: LOVENOX SUBQ SCH (23:13)
[2018-09-22] MEDS: LANTUS INSULIN SUBQ SCH (23:13)
[2018-09-22] MEDS: XANAX PO SCH (23:30)
[2018-09-23] MEDS: HUMALOG SUBQ SCH ×3 (06:15→16:28)
[2018-09-23] MEDS: COLCRYS PO SCH (08:37)
[2018-09-23] MEDS: OCUVITE LUTEIN & ZEAXANTHIN PO SCH (08:37)
[2018-09-23] MEDS: FISH OIL CONCENTRATE PO SCH (08:37)
[2018-09-23] MEDS: ASPIRIN EC PO SCH (08:37)
[2018-09-23] MEDS: CRESTOR PO SCH (08:37)
[2018-09-23] MEDS: BYSTOLIC PO SCH (08:37)
[2018-09-23] MEDS: PROZAC PO SCH (08:37)
[2018-09-23] MEDS: ZYLOPRIM PO SCH (08:37)
--- NOTE | 2018-09-23 12:33 | PROGRESS NOTE ---
DATE: 09/23/2018 SUBJECTIVE: Upon my arrival this morning, the patient was lying in bed. The patient states, overall, his last 24 hours have been largely uneventful. The patient states that he was able to walk with assistance. His p.o. intake, while marginal, is slowly improving. He is alert and oriented to person, place, and situation. He denies fevers, chills, nausea, vomiting, shortness of breath, or chest discomfort. OBJECTIVE: vital signs: T-max 98.5 degrees, heart rate 52 to 67, respirations 16 to 18, blood pressure 116 to 145 over 64 to 85. General: Chronically ill-appearing. No acute distress. Cardiovascular: Regular rate and rhythm. No significant murmurs, rubs, or gallops. Pulmonary: Clear to auscultation bilaterally. Abdomen: Soft, nontender, nondistended. Positive bowel sounds. Extremities: Moves all extremities well. No significant clubbing, cyanosis, or edema. Dermatologic: Evaluation reveals no evidence of rash. LABORATORY DATA: None. ASSESSMENT AND PLAN: 1. Syncopal episode - This likely was multifactorial. While hospitalized, the patient has been diagnosed with a right frontal lacunar infarct. This likely was noncontributory. I am concerned that the patient potentially was experiencing orthostasis. Blood pressure has been marginal, but is improving since discontinuing ramipril therapy. We will continue to follow this. 2. 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 We will continue supportive care. At this point, adding medications seems less appropriate than encouraging medication compliance. Unfortunately, he has had difficulty with this for many years. We will continue physical therapy as well. 3. Alteration of mental status - Today, the patient does not demonstrate any evidence of confusion. We will continue supportive care. This likely is multifactorial. 4. Dizziness - The patient complains of significant symptoms currently. This likely was secondary to orthostasis. We will remain aware. 5. Urinary retention - A Alegre catheter has been placed by Dr. Burgess. At this point, I am hesitant to add Flomax secondary to the potential for orthostatic hypotension. We will continue supportive care. We will discuss this further with Dr. Burgess in the a.m. 6. Coronary artery disease - The patient has advanced disease. We will continue his optimized medical and nonmedical management. 7. Carotid artery disease - The patient is status post right-sided carotid endarterectomy in 2008. Result of his recent carotid Doppler are pending. For now, we will continue optimized medical management. 8. Diabetes - The patient's blood sugars are reasonably controlled with his current regimen. 9. Depression/anxiety - This certainly is playing a role in his overall condition. Recently, he self discontinued all antidepressants. Prozac was resumed upon admission. Cogentin was continued. Symptoms are present, but stable. 10. Hypertension - The patient's ramipril has been held. Blood pressure is recovering. For now, we will continue only Bystolic therapy. 11. Hyperlipidemia - We will continue the patient on Crestor therapy. 12. Profound weakness - This is likely a consequence of medications, depression, and deconditioning. We will continue to work with Physical Therapy. I feel the patient likely will benefit from rehabilitation at discharge. DISPOSITION: At this point, the patient continues to require alf care in a hospital setting. We will plan discharge home once appropriate. cc: Tanner Greco MD
[2018-09-23] MEDS: XANAX PO SCH (21:38)
[2018-09-23] MEDS: COGENTIN PO SCH (21:38)
[2018-09-23] MEDS: LANTUS INSULIN SUBQ SCH (21:38)
[2018-09-23] MEDS: LOVENOX SUBQ SCH (21:38)
[2018-09-24] MEDS: HUMALOG SUBQ SCH ×4 (07:24→21:35)
[2018-09-24] MEDS: PROZAC PO SCH (09:05)
[2018-09-24] MEDS: OCUVITE LUTEIN & ZEAXANTHIN PO SCH (09:05)
[2018-09-24] MEDS: FISH OIL CONCENTRATE PO SCH (09:06)
[2018-09-24] MEDS: CRESTOR PO SCH (09:06)
[2018-09-24] MEDS: ASPIRIN EC PO SCH (09:06)
[2018-09-24] MEDS: ZYLOPRIM PO SCH (09:06)
[2018-09-24] MEDS: COLCRYS PO SCH (09:06)
[2018-09-24] MEDS: BYSTOLIC PO SCH (09:06)
--- NOTE | 2018-09-24 12:22 | PROGRESS NOTE ---
DATE: 09/24/2018 Mr. Leon reports no significant changes over the weekend. is present at the bedside and reports he seems to be at baseline. He reports he was able to walk with Physical Therapy assistance earlier. He reports consideration for rehabilitation assignment when ready for discharge. The history provided today of his event last week sounds like there was a period of altered awareness. This may have been associated with syncope related to hypotension or to head injury after falling for other reason. He was briefly disoriented. reports she has not noticed major changes in his cognitive function in recent weeks or months. His history to me today sounds like possible retropulsion in addition to his chronic clumsiness. I encouraged him to take his medicines as directed, to be careful with any new psychiatry medicines, to be aggressive with his rehabilitation assignment and to be careful with his gait and activities. I will be glad to see him again at any time. Thanks for asking Neurology to see Mr. Leon. cc: MD Tanner Branham III, MD MTDD
[2018-09-24] MEDS: LANTUS INSULIN SUBQ SCH (21:36)
[2018-09-24] MEDS: XANAX PO SCH (22:06)
[2018-09-24] MEDS: LOVENOX SUBQ SCH (22:06)
[2018-09-24] MEDS: COGENTIN PO SCH (22:07)
--- NOTE | 2018-09-24 22:13 | PROGRESS NOTE ---
DATE: 09/24/2018 SUBJECTIVE: Upon my arrival this morning, the patient was resting in bed. He states he had a restful evening. Throughout the day today, the patient worked with Physical Therapy. Overall, his condition is slowing improving. He denies fevers, chills, nausea, vomiting, shortness of breath, or chest discomfort. His mental status is approaching baseline. OBJECTIVE: Vital signs: T-max 98.3 degrees, heart rate 53 to 73, respirations 16 to 20, blood pressure 119 to 159 over 54 to 81. General: Chronically ill appearing. In no acute distress. Cardiovascular: Regular rate and rhythm. No significant murmurs, rubs or gallops. Pulmonary: Clear to auscultation bilaterally. Abdomen: Soft, nontender, nondistended. Positive bowel sounds. Extremities: Moves all extremities well. No clubbing, cyanosis or edema. Dermatologic: Evaluation reveals no evidence of rash. Laboratory data: None. ASSESSMENT AND PLAN: 1. Syncopal episode - This likely was secondary to orthostatic hypotension/vasovagal event. Since discontinuing ramipril therapy, the patient has had no further episodes. Will remain aware. 2. Possible recent right frontal lacunar infarct - This certainly could play a role in his recent personality changes. For now, we will continue optimized medical management. No medication changes have been made, however, compliance has been stressed as he unfortunately has been noncompliant with medications. 3. Alteration of mental status - This certainly could be secondary to his stroke. We will continue supportive care. He is approaching baseline. 4. Dizziness - This likely was a consequence of his orthostasis/vasovagal event. At present, he is asymptomatic. 5. Urinary retention - Alegre catheter is in place by Dr. Burgess. We will discuss removing Alegre catheter tomorrow, as he likely will be discharged to rehabilitation. We will follow this. 6. Coronary artery disease - The patient has longstanding coronary artery disease. He is treated with optimal medical and nonmedical management. He is asymptomatic. 7. Carotid artery disease - Doppler evaluation from earlier in hospitalization is pending. We will continue optimized medical and nonmedical management. 8. Diabetes - The patient's blood sugars are reasonably controlled on his current regimen. 9. Depression/anxiety - The patient's Prozac has been resumed. Symptoms are borderline controlled. 10.Hypertension - Blood pressure is controlled on his current regimen. 11.Hyperlipidemia - We will continue Crestor therapy. 12.Profound weakness with multiple falls - At this point, patient would benefit from rehabilitation. Request has been sent. 13.Disposition - At this point, the patient continues to require fpc care in a hospital setting. We will plan discharge home once appropriate. cc: Tanner Greco MD
[2018-09-25] MEDS: HUMALOG SUBQ SCH ×4 (06:47→20:34)
[2018-09-25] MEDS: FISH OIL CONCENTRATE PO SCH (10:01)
[2018-09-25] MEDS: ZYLOPRIM PO SCH (10:01)
[2018-09-25] MEDS: COLCRYS PO SCH (10:02)
[2018-09-25] MEDS: CRESTOR PO SCH (10:02)
[2018-09-25] MEDS: OCUVITE LUTEIN & ZEAXANTHIN PO SCH (10:02)
[2018-09-25] MEDS: BYSTOLIC PO SCH (10:02)
[2018-09-25] MEDS: ASPIRIN EC PO SCH (10:03)
[2018-09-25] MEDS: PROZAC PO SCH (10:06)
--- NOTE | 2018-09-25 15:04 | Carotid Study ---
DATE: 09/20/2018 PROCEDURE: Carotid duplex imaging. REFERRING PHYSICIAN: Dr. Tanner Greco INTERPRETING PHYSICIAN: Dr. Benoit [facility]: [place] INDICATIONS: 1. History of CVA. 2. History of right carotid endarterectomy. 3. Syncope. PREVIOUS COMPARISON: 12/22/2017. EQUIPMENT: Isoflux E9 ultrasound system with a 9LD transducer. OBSERVED DATA RIGHT LEFT Brachial Blood Pressure Carotid Pulse Bruits: Carotid/Sub DIAGRAM OF ULTRASOUND IMAGING R L RIGHT INT EXT INT EXT LEFT Ricci (cm/s) Ricci (cm/s) Subclavian 79/0 Subclavian 108/0 CCA Proximal 58/10 CCA Proximal 64/8 CCA Distal 48/11 CCA Distal 60/10 Bulb 48/7 Bulb 48/6 ICA Proximal 74/25 ICA Proximal 80/13 ICA Mid 85/16 ICA Mid 84/21 ICA Distal 65/18 ICA Distal 57/16 ECA 64/0 ECA 115/8 Vertebral 32/0 A Vertebral 64/9 A ICA/CCA Ratio 1.46 ICA/CCA Ratio 1.31 % Stenosis 0 to 39 % Stenosis 0 to 39 FINDINGS: Minimal atherosclerosis which does not produce a hemodynamically significant flow limiting stenosis. The right side is patent status post carotid endarterectomy. Both vertebral arteries are antegrade flow. PHYSICIAN INTERPRETATION: By strict velocity criteria, no hemodynamically significant flow limiting stenosis noted. cc: MD Tanner Raymundo MD
--- NOTE | 2018-09-25 15:46 | DISCHARGE SUMMARY ---
ADMISSION DATE: 09/20/2018 DISCHARGE DATE: 09/25/2018 ADMISSION DIAGNOSES: 1. Profound dizziness. 2. Syncopal episode. 3. Alteration of mental status. DISCHARGE DIAGNOSES: 1. Syncopal episode likely vasovagal versus hypotension associated. 2. Possible recent right frontal lacunar infarct per MRI. 3. Alteration of mental status, likely a consequence of stroke, improving. 4. Dizziness, likely secondary to orthostasis/vasovagal event, improving. 5. Urinary retention diagnosed while hospitalized with Alegre catheter removed on the day of discharge. 6. Coronary artery disease, present on arrival. 7. Carotid artery disease, present on arrival. 8. Diabetes, present on. 9. Depression/anxiety, present on arrival. 10. Hypertension, present on arrival. 11. Hyperlipidemia, present on arrival. 12. Profound weakness with multiple falls, progressive with an exacerbation associated with above- mentioned acute diagnoses. PROCEDURES: 1. CT scan of the head was performed on 09/20/2018 which revealed no hemorrhage. Atrophy of chronic ischemic changes and old lacunar infarcts. 2. Chest x-ray was performed on 09/20/2018 which revealed negative examination. 3. Echocardiogram was performed which revealed right atrium appears normal in size with 3.8 cm. Mild tricuspid regurgitation. RV systolic pressure of 26. Normal RV size and systolic function. Trace pulmonic insufficiency. Moderate to severe left atrial enlargement with a volume index of 35 and a dimension of 4.5 cm. No mitral valve prolapse. Mild mitral regurgitation. No mitral stenosis. Normal LV size, end-diastolic dimension of 4.6 cm. Normal wall thickness with a posterior and interventricular septal wall thickness of 1 cm each. Normal LV systolic function. Calculated ejection fraction of 66%. Aortic valve opens well. Mild insufficiency. No stenosis. Aorta appears normal in visualized segments. No pericardial effusion seen. 4. MRI of the brain was performed on 05/14/2018 which revealed atrophy with chronic microvascular ischemic changes and multiple small old infarcts. Possible recent right frontal lacunar infarct. Right maxillary sinusitis. 5. Carotid Doppler results are pending at the time of discharge. CONSULTATIONS: Dr. Granados with Neurology was consulted for further evaluation and management of alteration of mental status with possible new stroke. HISTORY AND PHYSICAL EXAMINATION: See admit note. Vital Signs: Physical examination prior to discharge, temperature 98 degrees, heart rate 51, respirations 14 and blood pressure 127/55. General: Well nourished, well developed in no acute distress. Chronically ill appearing. Cardiovascular: Slightly bradycardic regular rhythm. No significant murmurs, rubs, or gallops. Pulmonary: Clear to auscultation bilaterally. Abdomen: Soft, nontender, and nondistended. Positive bowel sounds. Extremities: No significant clubbing, cyanosis, or edema. Dermatologic: Evaluation reveals no evidence of rash. Neurologic: Reveals a right facial droop with left upper and lower extremity weakness with some uncoordinated movements. LABORATORY DATA: Prior to discharge none. HOSPITAL COURSE: Patient was admitted as per history and physical examination. Hospital course per condition is as follows. 1. Syncopal episode-upon admission, patient was noted to have a syncopal episode. While in the hospital, telemetry monitored for evidence of arrhythmia. No evidence was identified. After adjusting blood pressure medications, blood pressure improved. No further episodes have occurred. At this point, it is felt this syncopal episode was likely secondary to orthostatic hypotension versus a vasovagal event. We will continue to optimize medical management. We will follow him closely as an outpatient. 2. Possible recent right frontal lacunar infarct-this certainly could play a role in his personality changes over the course of the last week. While hospitalized, patient's mental status has approached his baseline. We will continue to optimize medical and nonmedical management. No medication adjustments were made as patient had been noncompliant with his current medicines. Compliance has been stressed. 3. Alteration of mental status-as above, this likely is a consequence of his acute stroke. With time, he is approaching his baseline. Once again, medication compliance has been encouraged. We will continue to optimize medical care. 4. Dizziness-This likely is a consequence of his orthostasis/vasovagal event. The patient is currently asymptomatic. We will follow this. 5. Urinary retention-while hospitalized, patient developed acute urinary retention. A Alegre catheter was placed. On the day of discharge, Alegre catheter was removed. Prior to transfer to rehabilitation, a postvoid residual will be performed to confirm that he continues to void adequately. 6. Coronary artery disease-patient has longstanding disease. He is treated with optimum medical and nonmedical management. He denies cardiac symptoms at the present time. 7. Carotid artery disease-patient has longstanding disease. Carotid Doppler results are pending at the time of discharge. We will continue his optimized medical and nonmedical management. We will follow this up to confirm no evidence of obstructive disease is identified. 8. Diabetes-patient has longstanding disease. While hospitalized, with Lantus at bedtime and sliding scale insulin, his blood sugars remained adequately controlled. We will continue this while at rehabilitation. 9. Depression/anxiety-unfortunately, patient recently discontinued his medications. While hospitalized, patient's Prozac was resumed. Cogentin was continued at nighttime per his psychiatric recommendation. While hospitalized, symptoms remained stable. 10. Hypertension-the patient has longstanding disease. As above, it appeared patient did have episodes of hypotension and orthostasis. The patient's blood pressure medications were adjusted. While hospitalized, blood pressure remained adequately controlled. 11. Hyperlipidemia-patient was continued on Crestor therapy throughout hospitalization. We will continue this at discharge. 12. Progressive weakness with multiple falls-unfortunately, this has been ongoing for several months. Patient has lost a considerable amount of weight. His activity at home has been minimal. With the addition of his acute illnesses as described above, patient is unable to care for himself adequately at home. We will transfer patient to rehabilitation for aggressive physical therapy with a goal of independent walking and independent Living. DISCHARGE CONDITION: Stable disposition. Discharged to rehabilitation. MEDICATIONS: 1. Acetaminophen 650 mg every 4 hours as needed. 2. Allopurinol 300 mg daily. 3. Aspirin 325 mg daily. 4. Cogentin 0.5 mg at bedtime. 5. Colchicine 0.6 mg daily. 6. Fluoxetine 40 mg daily. 7. Lantus 15 units at bedtime. 8. Bystolic 10 mg daily. 9. Rosuvastatin 40 mg daily. 10. Ocuvite tablet daily. 11. Alprazolam ER 1 mg at bedtime. 12. Lasix 40 mg daily as needed for swelling. 13. Sliding scale regular insulin with meals and at bedtime. 14. Krill Oil 1000 mg daily. FOLLOWUP: The patient is to follow up with me upon discharge from rehabilitation. cc: Tanner Greco MD
[2018-09-25] MEDS ORDERED: XYLOCAINE 2% JELLY UROJECT TOP ONE (16:23)
[2018-09-25 17:08] LABS: URINE SOURCE CATH
[2018-09-25 17:11] LABS: BILIRUBIN URINE NEGATIVE (NEGATIVE); BLOOD URINE SMALL (NEGATIVE); COLOR YELLOW; GLUCOSE URINE NEGATIVE (NEGATIVE); KETONE URINE NEGATIVE (NEGATIVE); LEUKOCYTES URINE NEGATIVE (NEGATIVE); NITRITE URINE NEGATIVE (NEGATIVE); PROTEIN URINE 30 mg/dL (NEGATIVE); SP GRAVITY URINE 1.003; TURBIDITY URINE CLEAR (CLEAR); UR EPITHELIAL CELLS <10 /HPF (<10); URINE BACTERIA NEGATIVE /HPF; URINE RBC <10 /HPF (<10); URINE WBC <10 /HPF (<10); UROBILINOGEN URINE NORMAL (NORMAL)
[2018-09-25] MEDS: COGENTIN PO SCH (20:39)
[2018-09-25] MEDS: LOVENOX SUBQ SCH (20:39)
[2018-09-25] MEDS: XANAX PO SCH (20:40)
[2018-09-25] MEDS: LANTUS INSULIN SUBQ SCH (20:43)
[2018-09-25] MEDS ORDERED: FLOMAX PO SCH (21:00)
[2018-09-26] MEDS: HUMALOG SUBQ SCH (06:04)
--- NOTE | 2018-09-26 06:59 | PROGRESS NOTE ---
DATE: 09/25/2018 ADDENDUM: The patient's Alegre catheter was removed this morning. Unfortunately, the patient failed his voiding trial. Urology was again consulted and a Alegre catheter was placed. Because of this as well as additional barriers in arranging transfer to rehabilitation, the patient will be discharged tomorrow should his condition continue to improve. cc: Tanner Greco MD
[2018-09-26] MEDS: CRESTOR PO SCH (09:20)
[2018-09-26] MEDS: OCUVITE LUTEIN & ZEAXANTHIN PO SCH (09:20)
[2018-09-26] MEDS: PROZAC PO SCH (09:20)
[2018-09-26] MEDS: ASPIRIN EC PO SCH (09:20)
[2018-09-26] MEDS: ZYLOPRIM PO SCH (09:20)
[2018-09-26] MEDS: FISH OIL CONCENTRATE PO SCH (09:20)
[2018-09-26] MEDS: COLCRYS PO SCH (09:20)
[2018-09-26] MEDS: BYSTOLIC PO SCH (09:20)
[2018-09-26] MEDS ORDERED: PNEUMOVAX 23 IM ONE (11:40)
[2018-09-26 12:30] VITALS: BP 138/65
[2018-09-26] MEDS ORDERED: XYLOCAINE 2% JELLY UROJECT TOP ONE (13:20)
[2018-09-26 14:45] LABS: URINE SOURCE CATH
[2018-09-26 14:49] LABS: BILIRUBIN URINE NEGATIVE (NEGATIVE); BLOOD URINE MODERATE (NEGATIVE); COLOR YELLOW; GLUCOSE URINE NEGATIVE (NEGATIVE); KETONE URINE NEGATIVE (NEGATIVE); LEUKOCYTES URINE LARGE (NEGATIVE); NITRITE URINE NEGATIVE (NEGATIVE); PH URINE 5.5; PROTEIN URINE 200 mg/dL (NEGATIVE); SP GRAVITY URINE 1.024; TURBIDITY URINE HAZY (CLEAR); UROBILINOGEN URINE 2 mg/dL (NORMAL)
[2018-09-26 14:54] LABS: UR EPITHELIAL CELLS >10 /HPF (<10); URINE BACTERIA NEGATIVE /HPF; URINE RBC 20-40 /HPF (<10); URINE WBC 20-40 /HPF (<10)
[2018-09-26 14:56] LABS: URINE CASTS NONE SEEN; URINE SMALL ROUND CELLS NONE SEEN
--- NOTE | 2018-09-26 21:27 | DISCHARGE SUMMARY ---
ADMISSION DATE: 09/20/2018 DISCHARGE DATE: 09/26/2018 ADDENDUM: SUBJECTIVE: Arrangements for discharge were made yesterday. Unfortunately, the patient developed urinary retention after the Alegre catheter was removed. A Alegre catheter required replacement. Flomax therapy has been recommended. Overnight, patient states he did well. He is prepared for discharge. He denies fevers, chills, nausea, vomiting, shortness of breath, or chest discomfort. OBJECTIVE: T-max 98.6 degrees, heart rate 57 to 64, respirations 16 to 21, blood pressure 105 to 143/55 to 73. General: Chronically ill-appearing, no acute distress. Cardiovascular: Regular rate and rhythm. No significant murmurs, rubs, or gallops. Pulmonary: Clear to auscultation bilaterally. Abdomen: Soft, nontender, nondistended. Positive bowel sounds. Extremities: Moves all extremities well. No significant clubbing, cyanosis, or edema. Dermatologic: Evaluation reveals no evidence of rash. LABORATORY DATA: Prior to discharge: None. ASSESSMENT AND PLAN: 1. Syncopal episode, possible recent right frontal lacunar infarct, alteration of mental status, dizziness, coronary artery disease, diabetes, depression/anxiety, hypertension, hyperlipidemia, and progressive weakness with multiple falls - See discharge summary from 09/26/2018. 2. Urinary retention - As noted, the patient developed urinary retention after Alegre catheter was removed yesterday. This inhibited his discharge to rehabilitation. Urology was consulted. A Alegre catheter was placed. Urology has recommended starting Flomax therapy. We will initiate this this evening. The patient's blood pressure and orthostatics will need to be monitored closely as he has had multiple falls recently. The addition of Flomax could precipitate this. A follow up will need to be arranged with a voiding trial with Dr. Vargas in 1 week. 3. Carotid artery disease - On discharge summary from yesterday, carotid Doppler was noted to be pending. Patient's carotid Doppler results returned with no hemodynamically significant flow limiting stenosis. 4. Disposition - The patient will be discharged to rehabilitation. cc: Tanner Greco MD
== END 2018-09-26 14:50 | DRG 312 ==
LOC: SUPCPDRO → ED 13:00 → 3N 17:09
PROVIDERS: ADMIT Internal Medicine; ATTEND Internal Medicine
CPT/HCPCS: 70450; 70553; 71010; 71045; 80053; 81001; 82550; 82607; 82948; 83735; 83880; 84439; 84443; 84484; 85025; 85610; 85651; 85730; 87088; 90732; 93005; 93306; 93880; 94799; 97116; 97162; 97530; 99285; A9270; A9579; J1650; J1815; J3475; J7030; XXXXX